=== PATIENT | male | born 1965 | race Caucasian/White ===

== ENCOUNTER 2021-10-07 21:28 | Outpatient (CLI) | payer BC | END 2021-10-07 21:29 | disposition critical access hospital (66) | LOC: EMS 21:28 | DX: R55 Syncope and collapse (principal) | CPT/HCPCS: A0425; A0427 ==

== ENCOUNTER 2021-10-07 22:05 | Emergency (ER) | payer BC ==
--- NOTE | 2021-10-07 22:25 | ED Physician Documentation ---
PD HPI SYNCOPE - Stated complaint Stated Complaint: NEAR SYNCOPE - Chief complaint Chief Complaint: General - History obtained from History obtained from: Patient - History of Present Illness Witnessed: Witnessed Timing - onset: How many minutes ago (few) Preceding symptoms: Diaphoresis, Light headed, Generalized weakness. No: Headache, Chest pain, Nausea / vomiting Contributing factors: Decreased PO intake (he states he had not had much to eat nor drink since breakfast, and then was at friend's house/dinner green party and had a small drink. He started to feel lightheaded then pale/sweaty. Sat down and was appearing pale per report. He states did not have full syncope. Friend/ called EMS. Pt better.) Injury occurred: No: Fell Similar symptoms before: Has not had sx before Recently seen: Not recently seen Review of Systems Constitutional: denies: Fever Nose: denies: Rhinorrhea / runny nose, Congestion Throat: denies: Sore throat Cardiac: denies: Chest pain / pressure, Palpitations Respiratory: denies: Cough GI: denies: Abdominal Pain, Nausea, Vomiting, Diarrhea, Bloody / black stool Neurologic: reports: Near syncope. denies: Focal weakness, Numbness, Altered mental status, Headache, Head injury PD PAST MEDICAL HISTORY - Past Medical History Past Medical History: Yes Cardiovascular: None Respiratory: Asthma Neuro: None Endocrine/Autoimmune: None GI: None : None HEENT: None Psych: None Musculoskeletal: None Derm: None - Past Surgical History Past Surgical History: Yes HEENT: Other - Allergies Allergies/Adverse Reactions: Allergies Allergy/AdvReac Type Severity Reaction Status Date / Time No Known Drug Allergies Allergy Verified 10/07/21 22:11 - Social History Does the pt smoke?: No Smoking Status: Former smoker Does the pt drink ETOH?: No Does the pt have substance abuse?: No PD ED PE NORMAL - Vitals Vital signs reviewed: Yes - General General: Alert and oriented X 3, No acute distress, Well developed/nourished - Neck Neck: Supple, no meningeal sign, No adenopathy - Cardiac Cardiac: RRR, No murmur - Respiratory Respiratory: Clear bilaterally - Abdomen Abdomen: Soft, Non tender - Derm Derm: Normal color, Warm and dry - Extremities Extremities: Normal ROM s pain, No edema, No calf tenderness / cord - Neuro Neuro: Alert and oriented X 3, No motor deficit, No sensory deficit, Normal speech Eye Opening: Spontaneous Motor: Obeys Commands Verbal: Oriented GCS Score: 15 Results - Vitals Vitals: Vital Signs - 24 hr 10/07/21 10/07/21 10/07/21 22:09 22:11 23:17 Temperature 36.7 C 36.7 C 36.5 C Heart Rate 78 78 82 Respiratory 17 17 18 Rate Blood Pressure 136/88 H 136/88 H 125/75 O2 Saturation 98 98 97 Oxygen O2 Source Room air - EKG (time done) 22:27 Rate: Rate (enter#) (82) Rhythm: NSR [place]: Normal Intervals: Normal UT QRS: Normal Ischemia: Normal ST segments. No: ST elevation c/w ischemia, ST depression - Labs Labs: Laboratory Tests 10/07/21 10/07/21 10/07/21 22:35 22:35 22:35 WBC 13.9 H RBC 4.41 L Hgb 13.4 L Hct 39.3 L MCV 89.1 MCH 30.4 MCHC 34.1 RDW 12.5 Plt Count 270 MPV 8.9 Neut # (Auto) 10.9 H Lymph # (Auto) 1.8 [place] # (Auto) 1.0 Eos # (Auto) 0.1 Baso # (Auto) 0.1 Absolute Nucleated RBC 0.00 Nucleated RBC % 0.0 Sodium 139 Potassium 3.5 Chloride 103 Carbon Dioxide 26 Anion Gap 10.0 BUN 18 Creatinine 1.1 Estimated GFR (MDRD) 69 L Glucose 108 H Calcium 8.7 Total Bilirubin 0.5 AST 17 ALT 22 Alkaline Phosphatase 69 Troponin I High Sens 2.7 Total Protein 6.3 L Albumin 3.6 Globulin 2.7 Albumin/Globulin Ratio 1.3 Lipase 26 PD MEDICAL DECISION MAKING - ED course Complexity details: reviewed results, considered differential (sounds like underhydration with vasodilatory effect of some alcohol and postural near syncope. Improved with lying flatter. NO chest pain. No recent exertional CP nor dyspnea. ), d/w patient Departure - Departure Disposition: 01 Home, Self Care Clinical Impression: Vasovagal near syncope Condition: Stable Record reviewed to determine appropriate education?: Yes Instructions: ED Near Syncope Vasovagal Follow-Up: WILFRED ARELLANO MD [Primary Care Provider] - Kd Vizcaino MD [Physician No Access] - Comments: Your EKG, blood tests, vital signs and the heart monitor are normal here. No signs of irregular heart rhythm, anemia, low blood sugar, electrolyte disorder or indication for heart attack. I presume a transient drop in your blood pressure causing your symptoms. It appears well now. Stay well-hydrated and regular eating through the day. Follow-up with your primary care if recurrent episodes or other concerns. Discharge Date/Time: 10/07/21 23:24
[2021-10-07] MEDS: SODIUM CHLORIDE 0.9% 1,000 ML IV STA (22:29)
[2021-10-07 22:42] LABS: BASOPHILS # (AUTO) 0.1 10^3/uL (0.0-0.1); BASOPHILS % (AUTO) 0.4 %; EOSINOPHILS # (AUTO) 0.1 10^3/uL (0.0-0.7); EOSINOPHILS % (AUTO) 0.8 %; HCT - HEMATOCRIT 39.3 % (42.0-52.0); HGB - HEMOGLOBIN 13.4 g/dL (14.0-18.0); LYMPHOCYTES # (AUTO) 1.8 10^3/uL (1.5-3.5); LYMPHOCYTES % (AUTO) 12.8 %; MEAN CORPUSCULAR HEMOGLOBIN 30.4 pg (27.0-31.0); MEAN CORPUSCULAR HGB CONC 34.1 g/dL (32.0-36.0); MEAN CORPUSCULAR VOLUME 89.1 fL (80.0-94.0); MEAN PLATELET VOLUME 8.9 fL (7.4-11.4); MONOCYTES % (AUTO) 7.3 %; NEUTROPHILS # (AUTO) 10.9 10^3/uL (1.5-6.6); NEUTROPHILS % (AUTO) 78.3 %; PLT - PLATELET COUNT 270 10^3/uL (130-450); RED BLOOD COUNT 4.41 10^6/uL (4.70-6.10); RED CELL DISTRIBUTION WIDTH 12.5 % (12.0-15.0); WHITE BLOOD COUNT 13.9 x10^3/uL (4.8-10.8)
[2021-10-07 22:58] LABS: ALBUMIN 3.6 g/dL (3.2-5.5); ALBUMIN/GLOBULIN RATIO 1.3 (1.0-2.2); BILIRUBIN,TOTAL 0.5 mg/dL (0.2-1.0); CALCIUM 8.7 mg/dL (8.5-10.3); CREATININE 1.1 mg/dL (0.6-1.2); POTASSIUM 3.5 mmol/L (3.5-5.0); TOTAL PROTEIN 6.3 g/dL (6.7-8.2)
[2021-10-07 23:18] VITALS: BP 125/75
== END 2021-10-07 23:24 | disposition home or self-care (01) ==
LOC: EDBD → ED 22:05
DX: R55 Syncope and collapse (principal); Z87.891 Personal history of nicotine dependence
CPT/HCPCS: 36415; 80053; 83690; 84484; 85025; 93005; 99283; 99284